=== PATIENT | male | born 1960 | race Caucasian/White ===

== ENCOUNTER 2023-12-19 14:53 | Outpatient (OUT) | payer SELFPAY | END 2023-12-19 14:54 | disposition home or self-care (01) | LOC: PST 14:54 | PROVIDERS: Visit Provider Surgery | DX: Z01.818 Encounter for other preprocedural examination (principal); Z12.11 Encounter for screening for malignant neoplasm of colon ==

== ENCOUNTER 2023-12-24 06:28 | Day surgery (SDC) | payer OTHER, SELFPAY ==
[2023-12-24 06:35] VITALS: BP 135/73; PULSE 71; TEMP 36.4; O2SAT 98; BMI 32.4; BMI 32.6
--- OUTSIDE RECORDS SUMMARY | 2023-12-24 06:35 | XMS_ITS | CCD ---
Author Organization [facility] Inform ion Partnership [facility] Care Team Providers Care Test Carrier Name Role Phone JESSICA TRIPATHI Primary Care Physician UnavailMD Raymundo Steen Attending Provider DO Jessica Tripathi Primary Care Provider ANKUR, DR BENITEZ Consulting Unavailable [facility] [place] BRISCOE Primary Care Unavailable ANKUR, DR BENITEZ Admitting Unavailable ANKUR, DR BENITEZ Attending Unavailable DUNLOW, DR KASSIDY Huerta Consulting Unavailable ANKUR, DR BENITEZ Attending Unavailable ANKUR, DR BENITEZ Consulting Unavailable [facility] [place] Primary Care Unavailable ANKUR, DR BENITEZ Admitting Unavailable MEGHAWADE Figueroa Consulting Unavailable GEMBUS, APRYL Consulting Unavailable Henna Coleman MD Primary Care Provider MARIA DOLORES ABRAMS Attending Unavailable MARIA DOLORES ABRAMS Attending Unavailable HENNA COLEMAN Attending Unavailable MICHAEL SALCEDO Attending Unavailable Raymundo CRABTREE Attending Unavailable Raymundo CRABTREE Attending Unavailable JESSICA TRIPATHI Primary Care Unavailable JESSICA TRIPATHI Primary Care Unavailable Raymundo CRABTREE Attending Unavailable Allergies Allergy Classification Reported Allergen(s) Allergy Type Date of Onset Reaction(s) Facility (6 sources) Seasonal allergy; Translations: [Seasonal] Drug allergy Sneezing (finding) [facility] Medications Current Medications Medication Drug Class(es) Dates Sig (Normalized) Sig (Original) 3 ML semaglutide 1.34 MG/ML Pen Injector [Ozempic] (5 sources) Start: 12-25-2021 Ozempic (1 mg dose) 4 mg/3 mL subcutaneous solution Refills(s) 0 Start Date: 12/25/21 Status: Ordered acetaminophen 325 mg / HYDROcodone bitartrate 7.5 mg oral tablet (1 source) Opioid Agonist Start: 01-18-2022 take 1 tablet by mouth once, then take 1 tablet by mouth every hour Fonda 325 mg-7.5 mg oral tablet 1 tab(s), Oral, Once, 1 tab(s), Refill(s) 0, Take 1 hour prior to procedure. Don't drive or operate machinery while taking., [id number], 186, cm, 12/25/21 14:38:00 EDT, Height/Length Dosing, 126.9, kg, 12/25/21 14:38:00 EDT, Weight D... Start Date: 01/18/22 Status: Ordered allopurinol 300 mg oral tablet (7 sources) Xanthine Oxidase Inhibitor Start: 01-18-2023 take 1 tablet by mouth once daily allopurinol (Zyloprim) 300 MG tablet Indications: Gouty arthropathy TAKE 1 TABLET BY MOUTH EVERY DAY 90 tablet 3 01/18/2023 Active Start: 12-25-2021 allopurinol 30 0 mg Tab Refills(s) 0 Start Date: 12/25/21 Status: Ordered ascorbic acid 500 mg oral capsule (2 sources) Vitamin C Ascorbic Acid (Vitamin C) 500 MG capsule 1 (one) time each day at the same time. 0 Active aspirin 81 mg oral tablet (4 sources) Platelet Aggregation Inhibitor, Nonsteroidal Anti-inflammatory Drug Start: 10-29-2022 aspirin ([place]) 81 MG capsule Take by mouth 0 10/29/2022 Active Start: 10-29-2022 take 1 mg by mouth e very four hours aspirin 81 mg oral capsule mg cap(s), Oral, q4hr, Refills(s) 0 Start Date: 10/29/22 Status: Ordered docosahexaenoic acid 120 mg / eicosapentaenoic acid 180 mg oral capsule (2 sources) omega-3 1000 MG capsule capsule Take by mouth 0 Active doxycycline hyclate 100 mg oral capsule (1 source) Tetracycline-class Drug Start: 2022 End: 2022 take 1 capsule by mouth twice daily doxycycline hyclate 100 mg Cap 100 mg = 1 cap(s), Oral, BID, Take with probiotics. Wear sun protection., X 28 day(s), # 56 cap(s), Refills(s) 0, Pharmacy: [facility] #[id number], 186, cm, 10/29/22 8:41:00 EDT, Height/Length Dosing, 119, kg, 10/29/22 8:41:00 EDT, Weight Dosing Start Date: 10/29/22 Stop Date: 11/26/22 Status: Ordered hydroCHLOROthiazide 25 mg / lisinopril 20 mg oral tablet (7 sources) Thiazide Diuretic, Angiotensin Converting Enzyme Inhibitor Start: 2021 End: 2023 take 1 tablet by mouth in the morning lisinopril-hydroC HLOROthiazide 20-25 MG tablet Indications: Primary hypertension (CMS/HCC) Take 1 tablet by mouth in the morning. 90 tablet 3 11/01/2022 11/01/2023 Active hydroCHLOROthiazide 25 mg / metoprolol tartrate 50 mg oral tablet (5 sources) Thiazide Diuretic, beta-Adrenergic Nuria Start: 2021 take 1 tablet by mouth twice daily hydrochlorothiazi de-metoprolol 25 mg-50 mg oral tablet tab(s), Oral, BID, Refill(s) 0 Start Date: 12/25/21 Status: Ordered levoFLOXacin 500 mg oral tablet (1 source) Quinolone Antimicrobial Start: 2021 take 1 tablet by mouth once daily Levaquin 500 mg Tab 500 mg = 1 tab(s), Oral, Daily, # 7 tab(s), Refills(s) 0, Pharmacy: [facility] #[id number], 186, cm, 12/25/21 14:38:00 EDT, Height/Length Dosing, 126.9, kg, 12/25/21 14:38:00 EDT, Weight Dosing Start Date: 12/25/21 Status: Ordered 24 hr metoprolol succinate 50 mg extended release oral tablet (2 sources) beta-Adrenergic Nuria Start: 2022 End: 2023 take 1 tablet by mouth once daily metoprolol succinate XL (Toprol-XL) 50 MG 24 hr tablet Indications: Primary hypertension (CMS/HCC) Take 1 tablet (50 mg) by mouth 1 (one) time each day at the same time. 90 tablet 3 11/01/2022 11/01/2023 Active Multi Vitamin+ (2 sources) Start: 2022 Multi Vitamin+ Refill(s) 0 Start Date: 10/29/22 Status: Ordered Multiple Vitamin (Multi Vitamin Daily) tablet (2 sources) Multiple Vitamin (Multi Vitamin Daily) tablet 1 (one) time each day at the same time. 0 Active ONE TOUCH VERIO TEST ST(NEW)100S (5 sources) Start: [address] TEST [address](NEW)100S ONE TOUCH VERIO TEST ST(NEW)100S Start Date: 12/25/21 Status: Ordered Ozempic, 1 MG/DOSE, 4 MG/3ML solution pen-injector (2 sources) Start: 2022 End: 2023 inject 1 mg by subcutaneous injection every week Ozempic, 1 MG/DOSE, 4 MG/3ML solution pen-injector Indications: Type 2 diabetes mellitus with diabetic polyneuropathy, without long-term current use of insulin ([facility]) Inject 1 mg under the skin 1 (one) time per week. 9 mL 3 11/01/2022 11/01/2023 Active tamsulosin hydrochloride 0.4 mg oral capsule (7 sources) alpha-Adrenergic Nuria Start: 2022 End: 2023 take 1 capsule by mouth twice daily Flomax 0.4 mg Cap 0.4 mg = 1 cap(s), Oral, BID, X 90 day(s), # 180 cap(s), Refills(s) 3, Pharmacy: [facility] #[id number], 186, cm, 10/29/22 8:41:00 EDT, Height/Length Dosing, 119, kg, 10/29/22 8:41:00 EDT, Weight Dosing Start Date: 10/29/22 Stop Date: 10/24/23 Status: Ordered Start: 01-18-2022 take 1 capsule by [facility] once daily Flomax 0.4 mg Cap 0.4 mg = 1 cap(s), Oral, Daily, # 90 cap(s), Refills(s) 3, Pharmacy: [facility] #[id number], 186, cm, 12/25/21 14:38:00 EDT, Height/Length Dosing, 126.9, kg, 12/25/21 14:38:00 EDT, Weight Dosing Start Date: 01/18/22 Status: Ordered Start: 12-25-2021 take 1 capsule by mo ut once daily tamsulosin 0.4 mg Cap 0.4 mg = 1 cap(s), Oral, Daily, # 30 cap(s), Refills(s) 6, Pharmacy: [facility] #[id number], 186, cm, 12/25/21 14:38:00 EDT, Height/Length Dosing, 126.9, kg, 12/25/21 14:38:00 EDT, Weight Dosing Start Date: 12/25/21 Status: Ordered take 1 capsule by [facility] every twenty-four hours in the morning tamsulosin (Flomax) 0.4 MG 24 hr capsule Take 0.4 mg by mouth in the morning and 0.4 mg before bedtime. 0 Active Turmeric extract (2 sources) TURMERIC PO Take by mouth 0 Active Completed/Discontinued Medications Medication Drug Class(es) Dates Sig (Normalized) Sig (Original) omeprazole 20 mg delayed release oral tablet (6 sources) Proton Pump Inhibitor Start: 11-01-2022 End: 11-01-2023 Omeprazole 20 MG tablet delayed-release Start: 10-29-2022 omeprazole Ora l, Daily, Refills(s) 0 Start Date: 10/29/22 Status: Ordered Problems Active Problems Problem Classification Problem Date Documented Da te Episodic/Chronic Acquired foot deformities (4 sources) Acquired hallux malleus; Translations: [Hallux varus (acquired), unspecified foot] Onset: 11-19-2017 11-01-2022 Chronic Asthma (6 sources) Asthma; Translations: [Unspecified asthma, uncomplicated] Onset: 02-21-2022 12-25-2021 Chronic Cancer of prostate (7 sources) Malignant neoplasm of prostate; Translations: [Malignant tumor of prostate] Onset: 02-21-2022 Chronic Diabetes mellitus with complications (8 sources) Type 2 diabetes mellitus; Translations: [Type 2 diabetes mellitus with diabetic polyneuropathy] Onset: 02-21-2016 Resolved: 12-06-2022 06-18-2023 Chronic Diabetes mellitus without complication (6 sources) Diabetes mellitus; Translations: [Type 2 diabetes mellitus without complications] Onset: 02-21-2022 2 Chronic Disorders of lipid metabolism (2 sources) Hypertriglyceridemi a; Translations: [Pure hyperglyceridemia] Onset: 05-03-2017 11-01-2022 Chronic Essential hypertension (8 sources) Hypertensive disorder; Translations: [Essential (primary) hypertension] Onset: 07-03-2016 12-25-2021 Chronic Genitourinary symptoms and ill-defined conditions (3 sources) Nocturia; Translations: [Darci hematuria] Onset: 02-21-2022 10-29-2022 Episodic Gout and other crystal arthropathies (8 sources) Gout; Translations: [Gout, unspecified] Onset: 07-09-2016 12-25-2021 Chronic Hyperplasia of prostate (12 sources) Benign prostatic hypertrophy without outflow obstruction; Translations: [Benign prostatic hyperplasia without lower urinary tract symptoms] Onset: 07-09-2016 Chronic Hypertension with complications and secondary hypertension (2 sources) Chronic kidney disease due to hypertension; Translations: [Hypertensive chronic kidney disease with stage 1 through stage 4 chronic kidney disease, or unspecified chronic kidney disease] Onset: 07-09-2016 11-01-2022 Chronic Inflammatory conditions of male genital organs (4 sources) Prostatitis; Translations: [Inflammatory disease of prostate, unspecified] Onset: 10-29-2022 Episodic Osteoarthritis (8 sources) Arthritis; Translations: [Unspecified osteoarthritis, unspecified site] Onset: 02-16-2017 12-25-2021 Chronic Other connective tissue disease (2 sources) Artificial knee joint present; Translations: [Presence of unspecified artificial knee joint] Onset: 02-21-2016 11-01-2022 Chronic Other male genital disorders (2 sources) Hemospermia 10-29-2022 Episodic Other nervous system disorders (2 sources) Difficulty walking up stairs; Translations: [Difficulty in walking, not elsewhere classified] Onset: 02-16-2017 11-01-2022 Chronic Other nervous system disorders (2 sources) Chronic pain; Translations: [Other chronic pain] Onset: 02-05-2017 11-01-2022 Chronic Other nutritional; endocrine; and metabolic disorders (4 sources) Severe obesity; Translations: [Morbid (severe) obesity due to excess calories] Onset: 10-25-2020 06-20-2023 Chronic Other nutritional; endocrine; and metabolic disorders (2 sources) Obese class II; Translations: [Obesity, unspecified] Onset: 02-23-2019 11-01-2022 Chronic Residual codes; unclassified (2 sources) Dependence on continuous positive airway pressure ventilation; Translations: [Dependence on other enabling machines and devices] Onset: 11-01-2022 11-01-2022 Chronic Residual codes; unclassified (2 sources) Obstructive sleep apnea syndrome; Translations: [Obstructive sleep apnea (adult) (pediatric)] Onset: 07-09-2016 11-01-2022 Chronic Unclassified (1 source) CONTACT W/AND (SUSP) EXPOS COVID-19; Translations: [CONTACT W/AND (SUSP) EXPOS COVID-19] Onset: 02-15-2022 Past or Other Problems Problem Classification Problem Date Documented Da te Episodic/Chronic Acquired foot deformities (4 sources) Acquired pes planus of left foot; Translations: [Flat foot [pes planus] (acquired), left foot] Onset: 07-09-2016 11-01-2022 Episodic Acquired foot deformities (2 sources) Acquired pes planus of right foot; Translations: [Flat foot [pes planus] (acquired), right foot] Onset: 07-09-2016 11-01-2022 Episodic Other aftercare (1 source) Other custodial (current) drug therapy; Translations: [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] Onset: 02-21-2022 Episodic Other and unspecified benign neoplasm (2 sources) History of adenomatous polyp of colon; Translations: [Personal history of colonic polyps] Onset: 06-29-2016 11-01-2022 Episodic Other injuries and conditions due to external causes (2 sources) History of fall; Translations: [History of falling] Onset: 11-19-2016 11-01-2022 Episodic Other male genital disorders (1 source) Disorder of prostate, unspecified; Translations: [DISORDER OF PROSTATE UNSPECIFIED] Onset: 02-21-2022 Episodic Other nutritional; endocrine; and metabolic disorders (2 sources) Hyperuricemia; Translations: [Hyperuricemia without signs of inflammatory arthritis and tophaceous disease] Onset: 07-09-2016 11-01-2022 Episodic Other screening for suspected conditions (not mental disorders or infectious disease) (7 sources) Raised prostate specific antigen; Translations: [Elevated prostate specific antigen [PSA]] Onset: 05-03-2017 Episodic Residual codes; unclassified (2 sources) Family history of ischemic heart disease; Translations: [Family history of ischemic heart disease and other diseases of the circulatory system] Onset: 07-09-2016 11-01-2022 Episodic Results Test Name Value Interpretation Reference Range Facility [facility] 07-05-2023 Lab Reports [id number] Normal [facility] 06-25-2023 Lab Reports [id number] 0TIFF Normal [facility] Ambulatory Visit Summaryon 0 06-24-2023 Ambulatory Visit Summary MINDI GEORGE Claudy :1960 Visit Date:06/24/2023 Ambulatory Visit Instructions Your Diagnosis Prostate cancer BPH with urinary obstruction Your Care Team Attending Physician - ANKUR ELLIOTT, Raymundo Conte Primary Care Physician - JARED ELLIOTT, HENNA Castanon This Is Your Medications List tamsulosin (Flomax 0.4 mg Cap) Contact prescribing physician if questions or concerns Misc Prescription (ONE TOUCH VERIO TEST ST(NEW)100S) Misc Prescription (ONETOUCH DELICA PLUS LANCET ONETOUCH DELICA PLUS 33G LANCT) allopurinol (allopurinol 300 mg Tab) aspirin (aspirin 81 mg oral capsule) hydrochlorothiazide-li sinopril (hydrochlorothiazide-l isinopril 25 mg-20 mg Tab) hydrochlorothiazide-me toprolol (hydrochlorothiazide-m etoprolol 25 mg-50 mg oral tablet) multivitamin (Multi Vitamin+) omeprazole semaglutide (Ozempic (1 mg dose) 4 mg/3 mL subcutaneous solution) Procedures Performed MRI-US fusion guided prostate biopsy (02/15/2022), Colonoscopy, Knee replacement. Discharge Vitals Height 186 cm Height 73 in Weight 119 kg Weight 261.8 lb BMI 34.4 What to do next Scheduled Follow-Up Appointments Saturday 3:15 PM EDT With: ANKUR ELLIOTT, Raymundo Conte Where: [facility] Patient Educationon 06-24-19 24 Patient Education Oncology Prostate Cancer Screening Prostate cancer screening is testing that is done to check for the presence of prostate cancer in men. The prostate gland is a walnut-sized gland that is located below the bladder and in front of the rectum in males. The function of the prostate is to add fluid to semen during ejaculation. Prostate cancer is one of the most common types of cancer in men. Who should have prostate cancer screening? Screening recommendations vary based on age and other risk factors, as well as between the professional organizations who make the recommendations. In general, screening is recommended if: ? You are age 50 to 70 and have an average risk for prostate cancer. You should talk with your health care provider about your need for screening and how often screening should be done. Because most prostate cancers are slow growing and will not cause , screening in this age group is generally reserved for men who have a 10- to 15-year life expectancy. ? You are younger than age 50, and you have these risk factors: ? Having a father, brother, or uncle who has been diagnosed with prostate cancer. The risk is higher if your family member's cancer occurred at an early age or if you have multiple family members with prostate cancer at an early age. ? Being a male who is Black or is of [place] or sub-Saharan descent. In general, screening is not recommended if: ? You are younger than age 40. ? You are between the ages of 40 and 49 and you have no risk factors. ? You are 70 years of age or older. At this age, the risks that screening can cause are greater than the benefits that it may provide. If you are at high risk for prostate cancer, your health care provider may recommend that you have screenings more often or that you start screening at a younger age. How is screening for prostate cancer done? The recommended prostate cancer screening test is a blood test called the prostate-specific antigen (PSA) test. PSA is a protein that is made in the prostate. As you age, your prostate naturally produces more PSA. Abnormally high PSA levels may be caused by: ? Prostate cancer. ? An enlarged prostate that is not caused by cancer (benign prostatic hyperplasia, or BPH). This condition is very common in older men. ? A prostate gland infection (prostatitis) or urinary tract infection. ? Certain medicines such as male hormones (like testosterone) or other medicines that raise testosterone levels. A rectal exam may be done as part of prostate cancer screening to help provide information about the size of your prostate gland. When a rectal exam is performed, it should be done after the PSA level is drawn to avoid any effect on the results. Depending on the PSA results, you may need more tests, such as: ? A physical exam to check the size of your prostate gland, if not done as part of screening. ? Blood and imaging tests. ? A procedure to remove tissue samples from your prostate gland for testing (biopsy). This is the only way to know for certain if you have prostate cancer. What are the benefits of prostate cancer screening? ? Screening can help to identify cancer at an early stage, before symptoms start and when the cancer can be treated more easily. ? There is a small chance that screening may lower your risk of dying from prostate cancer. The chance is small because prostate cancer is a slow-growing cancer, and most men with prostate cancer from a different cause. What are the risks of prostate cancer screening? The main risk of prostate cancer screening is diagnosing and treating prostate cancer that would never have caused any symptoms or problems. This is called overdiagnosisand overtreatment. PSA screening cannot tell you if your PSA is high due to cancer or a different cause. A prostate biopsy is the only procedure to diagnose prostate cancer. Even the results of a biopsy may not tell you if your cancer needs to be treated. Slow-growing prostate cancer may not need any treatment other than monitoring, so diagnosing and treating it may cause unnecessary stress or other side effects. Questions to ask your health care provider ? When should I start prostate cancer screening? ? What is my risk for prostate cancer? ? How often do I need screening? ? What type of screening tests do I need? ? How do I get my test results? ? What do my results mean? ? Do I need treatment? Where to find more information ? The [place] [employer]: www.cancer.org ? [place] [employer]: www.auanet.org Contact a health care provider if: ? You have difficulty urinating. ? You have pain when you urinate or ejaculate. ? You have blood in your urine or semen. ? You have pain in your back or in the area of your prostate. Summary ? Prostate cancer is a common type of cancer in men. The prostate gland is located below the bladder and in front of the rectum. This gland adds flu (more content not included)... Normal [facility] Urology Office/Clinic Noteon 06-24-2023 Urology Office/Clinic Note Chief Complaint 6m PSA & SHELBY HPI Staff 6 month f/u with PSA. Previous dx of prostate cancer (ACTIVE SURVEILLANCE), BPH and prostatitis. Flomax 0.4mg BID. Denies pain/burning and visible blood in urine. Frequency and improved. Day & Night. Only getting up 1x/night (was 3-4) Steady stream. Intermittent lower abdominal pain for over the past year. Denies current pain. Usually lasts a few seconds/minutes, fades away after urinating &/or BM. PSA 06/21/23- 7.93 History of Present Illness Tests reviewed: reviewed UA, PSA I have reviewed the previous health record information and history for this patient from Dr. Crabtree. I have reviewed and verified the staff HPI to be accurate for this encounter. Review of Systems PHQ Score Initial Depression Screen Score: 0 SCORE ROS - Provider Constitutional: denies weight loss, denies hot flashes. Eyes: denies eye problems. Gastrointestinal: denies nausea, denies vomiting. Cardiovascular: denies chest pain or angina. Integumentary: no dryness Musculoskeletal: denies musculoskeletal symptoms. ENMT: denies otolaryngeal symptoms. Respiratory: no shortness of breath. Heme/Lymph: denies easy bleeding tendency, denies easy bruising tendency. Psychiatric: no confusion, no anxiety. Genitourinary: See HPI. Physical Exam Vitals & Measurements HT: 73 in HT: 186 cm WT: 119 kg WT: 261.8 lb BMI: 34.4 General Appearance: alert, no distress, well nourished, well developed male. Genitourinary: normal scrotum, normal testes, normal urethra, normal epididymis, normal vas deferens/spermatic cord. Flank Pain: none. Bladder: nonpalpable. Prostate: normal prostate, estimated weight 45 gms, no hard nodule observed. Assessment/Plan 1. Prostate cancer (C61: Malignant neoplasm of prostate) ACTIVE SURVEILLANCE. PSA: 11/01/21 - 6.86 10/24/22 - 6.61 06/21/23 - 7.93 SHELBY: 45g, benign MRI of prostate 01/09/22 - PI-RADS 4. Lateral aspect of the R peripheral zone at the level of the apex measuring 5 x 5 mm. Fusion bx 02/15/22 - [place] 6 (3+3) x 1 core, less than 1% of the core. Discussed PSA level w/ pt. Has increased from prior. Advised pt we will need to repeat PSA level in 6 months to determine next step. Educated pt there is more concern if PSA continues to rise vs fluctuate. Pt is concerned about current level. Offered PSA in 3 months and in 6 months. Pt states he is fine with PSA check in 6 months. -F/u in 6 mos w/ PSA 2. BPH with urinary obstruction (N40.1: Benign prostatic hyperplasia with lower urinary tract symptoms) Taking Tamsulosin 0.4mg bid. UA today negative for blood and infection. Follow-up With When Contact Information ANKUR ELLIOTT, Raymundo Conte, URL [facility] [address], [place] [address] [phone] Additional Instructions: 6 mos w/ PSA Patient Education Prostate Cancer Screening I, Barb Durán, personally scribed for Dr. Crabtree on 06/24/2023 16:21:22. . Documentation recorded by the scribe, Barb Durán, accurately reflects the services(s) I performed and decisions made by me. Authenticated by Dr. Crabtree on 06/24/2023 16:23:18. Problem List/Past Medical History Ongoing Arthritis Asthma BPH (benign prostatic hyperplasia) BPH with urinary obstruction Diabetes Gout Gross hematuria Hematospermia Hypertension Prostate cancer Prostatitis Historical No qualifying data Procedure/Surgical History MRI-US fusion guided prostate biopsy (02/15/2022), Colonoscopy, Knee replacement. Medications allopurinol 300 mg Tab aspirin 81 mg oral capsule, Oral, q4hr Flomax 0.4 mg Cap, 0.4 mg= 1 cap(s), Oral, BID, 3 refills hydrochlorothiazide-li sinopril 25 mg-20 mg Tab hydrochlorothiazide-me toprolol 25 mg-50 mg oral tablet, Oral, BID Multi Vitamin+ omeprazole, Oral, Daily ONE TOUCH VERIO TEST ST(NEW)100S, 0 ONETOUCH DELICA PLUS LANCET ONETOUCH DELICA PLUS 33G LANCT, 0 Ozempic (1 mg dose) 4 mg/3 mL subcutaneous solution Allergies Seasonal (Sneezing) Social History Tobacco Never (less than 100 in lifetime) Tobacco Use:. Never Smokeless Tobacco Use:. Household tobacco concerns: No. Yes, 06/24/2023 Family History Heart disease: Father. Immunizations Vaccine Date Status Comments influenza virus vaccine, inactivated 04/30/2022 Recorded pneumococcal 23-valent vaccine 10/31/2021 Recorded SARS-CoV-2 (COVID-19) mRNA-1273 vaccine 05/09/2021 Recorded influenza virus vaccine, inactivated 04/27/2021 Recorded diphtheria/pertussis, acel/tetanus adult 01/25/2021 Recorded SARS-CoV-2 (COVID-19) mRNA-1273 vaccine 08/26/2020 Recorded 2022-02-21: TPV60 SARS-CoV-2 (COVID-19) mRNA-1273 vaccine 07/29/2020 Recorded 2022-02-21: TPV60 influenza, whole 03/14/2009 Recorded Lab Results Ambulatory Point of Care Results Bilirubin Urine Dipstick: Negative (06/24/23 15:34:00) Blood Urine Dipstick: Negative (06/24/23 15:34:00) Glucose Urine Dipstick: Negative (06/24/23 15: (more content not included)... Normal [facility] Comment on above: Result Comment: Elec tronically Signed By: Raymundo CRABTREE MD\.br\Date and Time Signed: 06/24/23 16:23 EST\.br\Electronically Co-Signed By: Barb Durán\.br\Date and Time Co-Signed: 06/24/23 16:22 EST HbA1c (Bld) [Mass fraction]o n 06-20-2023 Interpretation and review of laboratory results Normal [facility] - Hematology and Cell countson 06-20-2023 HbA1c (Bld) [Mass fraction] 5.3 % [facility] Patient Educationon 01-01-20 Patient Education Urology Benign Prostatic Hyperplasia Benign prostatic hyperplasia (BPH) is an enlarged prostate gland that is caused by the normal aging process. The prostate may get bigger as a man gets older. The condition is not caused by cancer. The prostate is a walnut-sized gland that is involved in the production of semen. It is located in front of the rectum and below the bladder. The bladder stores urine. The urethra carries stored urine out of the body. An enlarged prostate can press on the urethra. This can make it harder to pass urine. The buildup of urine in the bladder can cause infection. Back pressure and infection may progress to bladder damage and kidney (renal) failure. What are the causes? This condition is part of the normal aging process. However, not all men develop problems from this condition. If the prostate enlarges away from the urethra, urine flow will not be blocked. If it enlarges toward the urethra and compresses it, there will be problems passing urine. What increases the risk? This condition is more likely to develop in men older than 50 years. What are the signs or symptoms? Symptoms of this condition include: ? Getting up often during the night to urinate. ? Needing to urinate frequently during the day. ? Difficulty starting urine flow. ? Decrease in size and strength of your urine stream. ? Leaking (dribbling) after urinating. ? Inability to pass urine. This needs immediate treatment. ? Inability to completely empty your bladder. ? Pain when you pass urine. This is more common if there is also an infection. ? Urinary tract infection (UTI). How is this diagnosed? This condition is diagnosed based on your medical history, a physical exam, and your symptoms. Tests will also be done, such as: ? A post-void bladder scan. This measures any amount of urine that may remain in your bladder after you finish urinating. ? A digital rectal exam. In a rectal exam, your health care provider checks your prostate by putting a lubricated, gloved finger into your rectum to feel the back of your prostate gland. This exam detects the size of your gland and any abnormal lumps or growths. ? An exam of your urine (urinalysis). ? A prostate specific antigen (PSA) screening. This is a blood test used to screen for prostate cancer. ? An ultrasound. This test uses sound waves to electronically produce a picture of your prostate gland. Your health care provider may refer you to a specialist in kidney and prostate diseases (urologist). How is this treated? Once symptoms begin, your health care provider will monitor your condition (active surveillance or watchful waiting). Treatment for this condition will depend on the severity of your condition. Treatment may include: ? Observation and yearly exams. This may be the only treatment needed if your condition and symptoms are mild. ? Medicines to relieve your symptoms, including: ? Medicines to shrink the prostate. ? Medicines to relax the muscle of the prostate. ? Surgery in severe cases. Surgery may include: ? Prostatectomy. In this procedure, the prostate tissue is removed completely through an open incision or with a laparoscope or robotics. ? Transurethral resection of the prostate (TURP). In this procedure, a tool is inserted through the opening at the tip of the penis (urethra). It is used to cut away tissue of the inner core of the prostate. The pieces are removed through the same opening of the penis. This removes the blockage. ? Transurethral incision (TUIP). In this procedure, small cuts are made in the prostate. This lessens the prostate's pressure on the urethra. ? Transurethral microwave thermotherapy (TUMT). This procedure uses microwaves to create heat. The heat destroys and removes a small amount of prostate tissue. ? Transurethral needle ablation (TUNA). This procedure uses radio frequencies to destroy and remove a small amount of prostate tissue. ? Interstitial laser coagulation (ILC). This procedure uses a laser to destroy and remove a small amount of prostate tissue. ? Transurethral electrovaporization (TUVP). This procedure uses electrodes to destroy and remove a small amount of prostate tissue. ? Prostatic urethral lift. This procedure inserts an implant to push the lobes of the prostate away from the urethra. Follow these instructions at home: ? Take ujic-zac-ghwadhf and prescription medicines only as told by your health care provider. ? Monitor your symptoms for any changes. Contact your health care provider with any changes. ? Avoid drinking large amounts of liquid before going to bed or out in public. ? Avoid or reduce how much caffeine or alcohol you drink. ? Give yourself time when you urinate. ? Keep all follow-up visits. This is important. Contact a health care provider if: ? You have unexplained back pain. ? Your symptoms do not get better with treatment. ? You develop side effects from the medicine (more content not included)... Normal [facility] Reminderson 12-31-2022 Reminders - From: Barb Durán To: SPENCER Rachel Rcabtree; Sent: 12/31/2022 17:05:43 EDT Show up: 06/02/2023 16:05:00 EST Subject: PSA prior to appt Reminder Message Please Remember to:_have pt get PSA (@ [facility]) done prior to appt. [facility] Urology Office/Clinic Noteon 12-31-2022 Urology Office/Clinic Note Chief Complaint 2 month follow up HPI Staff 2 month follow up after starting Doxycycline 100mg q12hr x 4 weeks. Previous DX: prostate cancer (MRI fusion bx 02/15/22) and BPH with elevated PSA. *Tamsulosin 0.4mg BID therapy was increased from last visit. Dysuria: denies pain or burning Incomplete bladder emptying: denies Hematuria: denies visible blood Frequency: 12-14x a day, drinks a lot of coffee Urgency: yes Nocturia: 1x a night Stream: denies hesitancy, denies weak stream Leaking: denies Post void dripping: yes Wearing pads/ Depends: denies Urge incontinence: sometimes not consistently Stress incontinence: denies Incontinence without Sensory Awareness: denies Abdominal pain: denies Flank pain: denies Sexual complaints: denies History of Present Illness Tests reviewed: reviewed UA I have reviewed the previous health record information and history for this patient from Dr. Crabtree. I have reviewed and verified the staff HPI to be accurate for this encounter. There have been no associated fever, chills, flank pain, or blood in the urine. Denies any urinary infections since last encounter. Review of Systems PHQ Score Initial Depression Screen Score: 0 ROS - Provider Constitutional: denies weight loss, denies hot flashes. Eyes: denies eye problems. Gastrointestinal: denies nausea, denies vomiting. Cardiovascular: denies chest pain or angina. Integumentary: no dryness Musculoskeletal: denies musculoskeletal symptoms. ENMT: denies otolaryngeal symptoms. Respiratory: no shortness of breath. Heme/Lymph: denies easy bleeding tendency, denies easy bruising tendency. Psychiatric: no confusion, no anxiety. Genitourinary: See HPI. Physical Exam Vitals & Measurements HR: 63(Peripheral) BP: 134/82 HT: 73 in HT: 186 cm WT: 119 kg WT: 261.8 lb BMI: 34.4 General Appearance: alert, no distress, well nourished, well developed male. Genitourinary: normal scrotum, normal testes, normal urethra, normal epididymis, normal vas deferens/spermatic cord. Flank Pain: none. Bladder: nonpalpable. Assessment/Plan 1. Prostate cancer (C61: Malignant neoplasm of prostate) ACTIVE SURVEILLANCE. PSA: 11/01/21 - 6.86 10/24/22 - 6.61 MRI of prostate 01/09/22 - PI-RADS 4. Lateral aspect of the R peripheral zone at the level of the apex measuring 5 x 5 mm. Fusion bx 02/15/22 - Julius 6 (3+3) x 1 core, less than 1% of the core. [1] Follow up with PSA and SHELBY in 6 months or sooner if needed. Pt understands and agrees with plan. 2. BPH (benign prostatic hyperplasia) (N40.0: Benign prostatic hyperplasia without lower urinary tract symptoms) Pt continues taking Tamsulosin 0.4 mg BID. Reports he voids every 0.5-1.5hr. States he feels he would have an accident if he did not go right away. Has a moderately strong and occasional stop/start stream. Feels he empties completely. Admits he drinks about 32oz of decaffeinated coffee per day during the week (and caffeinated on the weekends). Advised to decrease coffee intake to help with frequency. 3. Prostatitis (N41.9: Inflammatory disease of prostate, unspecified) Pt took Doxycycline 100 mg q12hr x 4 weeks at prior office visit. UA today negative for blood and infection. Follow-up With When Contact Information ANKUR ELLIOTT, Raymundo Conte, CHRIS In 6 months [facility] [address] [place] [address]- [phone] Additional Instructions: PSA and SHEL[facility] Patient Education Benign Prostatic Hyperplasia I, Barb Durán, personally scribed for Dr. Crabtree on 12/31/2022 16:48:44. . Documentation recorded by the Barb rodriguez, accurately reflects the services(s) I performed and decisions made by me. Authenticated by Dr. Crabtree on 12/31/2022 16:51:17. Problem List/Past Medical History Ongoing Arthritis Asthma BPH (benign prostatic hyperplasia) Diabetes Gout Gross hematuria Hematospermia Hypertension Prostate cancer Prostatitis Historical No qualifying data Procedure/Surgical History MRI-US fusion guided prostate biopsy (02/15/2022), Colonoscopy, Knee replacement. Medications allopurinol 300 mg Tab aspirin 81 mg oral capsule, Oral, q4hr Flomax 0.4 mg Cap, 0.4 mg= 1 cap(s), Oral, BID, 3 refills hydrochlorothiazide-li sinopril 25 mg-20 mg Tab hydrochlorothiazide-me toprolol 25 mg-50 mg oral tablet, Oral, BID Multi Vitamin+ omeprazole, Oral, Daily ONE TOUCH VERIO TEST ST(NEW)100S, 0 ONETOUCH DELICA PLUS LANCET ONETOUCH DELICA PLUS 33G LANCT, 0 Ozempic (1 mg dose) 4 mg/3 mL subcutaneous solution Allergies Seasonal (Sneezing) Social History Tobacco Never (less than 100 in lifetime) Tobacco Use:. Never Smokeless Tobacco Use:. Household tobacco concerns: No., 12/31/2022 Family History Heart disease: Father. Immunizations Vaccine Date Status Comments influenza virus vaccine, inactivated 04/30/2022 Recorded pneumococcal 23-valent vaccine 10/31/2021 Record (more content not included)... Normal [facility] Comment on above: Result Comment: Elec tronically Signed By: Raymundo CRABTREE MD\.br\Date and Time Signed: 12/31/22 16:51 EDT\.br\Electronically Co-Signed By: Barb Durán\.br\Date and Time Co-Signed: 12/31/22 16:49 EDT No Panel Informationon 02-15 Normal -[facility]Sarthak cormier Work Phone: CBC AUTO DIFFon 02-13-2022 BASO # 0.0 103/ul Normal 0.0-0.1 [facility] Comment on above: Performed By: #### C BC #### Laboratory [address] [place] [address] Dr. Marcell Albarado Basophils/100 WBC (Bld) 0.7 % Normal 0.2-2.0 [facility] Comment on above: Performed By: #### C BC #### Laboratory [address] [place] [address] [id number] [address] Marcell Albarado EO # 0.2 103/ul Normal 0.0-0.7 [facility] Comment on above: Performed By: #### C BC #### Laboratory [address] [place] [address] Dr. Marcell Albarado Eosinophils/100 WBC (Bld) 4.0 % Normal 0.9-7.0 [facility] Comment on above: Performed By: #### C BC #### Laboratory [address] [place] [address] Dr. Marcell Albarado Erythrocyte distribution width (RBC) [Ratio] 14.3 % Normal 11.0-15.0 [facility] Comment on above: Performed By: #### C BC #### Laboratory [address] [place] [address] Dr. Marcell Albarado Hematocrit (Bld) [Volume fraction] 45.2 % Normal 42.0-54.0 [facility] Comment on above: Performed By: #### C BC #### Laboratory [address] [place] [address] Dr. Marcell Albarado Hemoglobin (Bld) [Mass/Vol] 14.9 g/dL Normal 14.0-18.0 [facility] Comment on above: Performed By: #### C BC #### Laboratory [address] [place] [address] Dr. Marcell Albarado IG # 0.02 10e3/ul Normal 0.00-0.03 The Comment on above: Performed By: #### C BC #### Laboratory [address] [place] [address] Dr. Marcell Albarado IG % 0.3 % Normal 0.0-0.5 The Comment on above: Performed By: #### C BC #### Laboratory [address] [place] [address] Dr. Marcell Albarado LYMPH # 1.2 103/ul Normal 1.2-3.8 The Comment on above: Performed By: #### C BC #### Laboratory [address] [place] [address] Dr. Marcell Albarado Lymphocytes/100 WBC (Bld) 20.6 % Normal 20.5-60.0 [facility] Comment on above: Performed By: #### C BC #### Laboratory [address] [place] [address] Dr. Marcell Albarado MANUAL DIFF REQ NO Normal [facility] Comment on above: Performed By: #### C BC #### Laboratory [address] [place] [address] Dr. Marcell Albarado MCH (RBC) [Entitic mass] 28.4 pg Normal 25.9-34.0 [facility] Comment on above: Performed By: #### C BC #### Laboratory [address] [place] [address] Dr. Marcell Albarado MCHC (RBC) [Mass/Vol] 33.0 g/dL Normal 29.9-35.2 [facility] Comment on above: Performed By: #### C BC #### Laboratory [address] [place] [address] Dr. Marcell Albarado MCV (RBC) [Entitic vol] 86.1 fL Normal 80.0-94.0 [facility] Comment on above: Performed By: #### C BC #### Laboratory [address] [place] [address] Dr. Marcell Albarado MONO # 0.4 103/ul Normal 0.3-0.8 [facility] Comment on above: Performed By: #### C BC #### Laboratory [address] [place] [address] Dr. Marcell Albarado Monocytes/100 WBC (Bld) 7.5 % Normal 1.7-12.0 [facility] Comment on above: Performed By: #### C BC #### Laboratory [address] [place] [address] Dr. Marcell Albarado NEUT # 3.8 103/ul Normal 1.4-6.5 The Comment on above: Performed By: #### C BC #### Laboratory [address] [place] [address] Dr. Marcell Albarado Neutrophils/100 WBC (Bld) 66.9 % Normal 43.0-75.0 The Comment on above: Performed By: #### C BC #### Laboratory [address] [address] [address] Marcell Albarado Platelet mean volume (Bld) [Entitic vol] 9.8 fL Normal 9.5-13.5 [facility] Comment on above: Performed By: #### C BC #### Laboratory [address] [address] [address] Marcell Albarado PLT 234 103/ul Normal 150-450 The Comment on above: Performed By: #### C BC #### Laboratory [address] [address] [address] Marcell Albarado RBC 5.25 106/ul Normal 4.70-6.10 The Comment on above: Performed By: #### C BC #### Laboratory [address] [place] [address] Dr. Marcell Albarado WBC 5.7 103/ul Normal 4.0-11.0 [facility] Comment on above: Performed By: #### C BC #### Laboratory [address] [address] [address] Marcell Albarado Covid-19 PCR ([facility])on 01-19 SARS-CoV-2 (COVID-19) RNA ZOLTAN+probe Ql (Unsp spec) Not detected Normal NOT DETECTED The Comment on above: Result Comment: This test is not yet approved or cleared by the [place] FDA. When there are no FDA-approved or cleared tests available, and other criteria are met, FDA can make tests available under an emergency access mechanism called an Emergency Use Authorization (EUA). The EUA for this test is supported by the [place] of Health and Human Service's (HHS's) declaration that circumstances exist to justify the emergency use of in vitro diagnostics for the detection and/or diagnosis of the virus that causes COVID-19. This EUA will remain in effect (meaning this test can be used) for the duration of the COVID-19 declaration justifying emergency of IVDs, unless it is terminated or revoked by FDA (after which the test may no longer be used). When diagnostic testing is negative, the possibility of a false negative should be considered in the context of a patient's recent exposures and the presence of clinical signs and symptoms consistent with SARS-CoV-2. Performed By: #### C VDTB #### Laboratory [address] [place] [address] Dr. Marcell Albarado PROF CHEM 8 (BAS METB)on Anion gap [Moles/Vol] 14.5 mmol/L Normal [facility] Comment on above: Performed By: #### B MP #### Laboratory [address] [place] [address] Dr. Marcell Albarado Calcium [Mass/Vol] 9.1 mg/dL Normal 8.5-10.1 [facility] Comment on above: Performed By: #### B MP #### Laboratory [address] [place] [address] Dr. Marcell Albarado Chloride [Moles/Vol] 104 mmol/L Normal 98-107 [facility] Comment on above: Performed By: #### B MP #### Laboratory [address] [place] [address] Dr. Marcell Albarado CO2 [Moles/Vol] 24.3 mmol/L Normal 21.0-32.0 [facility] Comment on above: Performed By: #### B MP #### Laboratory [address] [place] [address] Dr. Marcell Albarado Creatinine [Mass/Vol] 1.13 mg/dL Normal 0.70-1.30 [facility] Comment on above: Performed By: #### B MP #### Laboratory [address] [place] [address] Dr. Marcell Albarado EGFR-AF CHINESE >60 Normal >=60 [facility] Comment on above: Performed By: #### B MP #### Laboratory [address] [place] [address] Dr. Marcell Albarado EGFR-NON AF CHINESE >60 Normal >=60 [facility] Comment on above: Performed By: #### B MP #### Laboratory [address] [place] [address] Dr. Marcell Albarado Glucose [Mass/Vol] 102 mg/dL Normal 74-106 [facility] Comment on above: Performed By: #### B MP #### Laboratory [address] [address] [address] Marcell Albarado Potassium [Moles/Vol] 3.8 mmol/L Normal 3.5-5.1 [facility] Comment on above: Performed By: #### B MP #### Laboratory [address] [address] [address] Marcell Albarado Sodium [Moles/Vol] 139 mmol/L Normal 136-145 [facility] Comment on above: Performed By: #### B MP #### Laboratory [address] [place] [address] Dr. Marcell Albarado Urea nitrogen [Mass/Vol] 23.0 mg/dL Critically high 7.0-18.0 [facility] Comment on above: Performed By: #### B MP #### Laboratory [address] [address] [address] Marcell Albarado Urea nitrogen/Creatinine [Mass ratio] 20.4 mg/mg Normal The Comment on above: Performed By: #### B MP #### Laboratory [address] [place] [address] Dr. Marcell Albarado PROTIMEon 02-13-2022 INR Coag (PPP) [Relative time] 1.02 {INR} Normal [facility] Comment on above: Performed By: #### P T, PTT #### Laboratory [address] [place] [address] Dr. Marcell Albarado INR GUIDELINES SEE BELOW Normal [facility] Comment on above: Result Comment: DAWN RED INR: 2.0 - 3.0 CONDITIONS NOT LISTED BELOW 2.5 - 3.5 FOR PROSTHETIC HEART VALVE REPLACEMENT 2.5 - 3.5 RECURRENT THROMBOSIS Performed By: #### P T, PTT #### Laboratory [address] [place] [address] Dr. Marcell Albarado PT Coag (PPP) [Time] 11.0 s Normal 9.0-11.6 [facility] Comment on above: Performed By: #### P T, PTT #### Laboratory [address] [place], [place] [address] Dr. Marcell Albarado PTTon 02-13-2022 aPTT Coag (Bld) [Time] 28.2 s Normal 22.3-36.2 Th [facility] Comment on above: Performed By: #### P T, PTT #### Laboratory [address] [address] [address] Marcell Albarado ISTAT XRay CREon 01-10-2022 Creatinine [Mass/Vol] 1.2 mg/dL Normal 0.6-1.3 [facility] Comment on above: Result Comment: ER/E SD physician is notified/shown all ISTAT results. Critical values may be confirmed by laboratory testing if deemed necessary by ER attending doctor. Performed By: #### I SCRE #### [facility] [address] [place] [address] Point of Care testing , ISTAT GFR ( > 60 [facility] Comment on above: Result Comment: GFR estimated reference range: According to KDOQI guidelines, <60 ml/min/1.73m2 is sufficient to diagnose a patient with chronic kidney disease. PERFORMED BY: [place] [address] PATHOLOGIST [employer] GRINDER TRENTON BUTLER M.D. Performed By: #### I SCRE #### [facility] [address] [place] [address] Point of Care testing , ISTAT GFR (Non- Am > 60 [facility] Comment on above: Performed By: #### I SCRE #### [facility] [address] [place] [address] Point of Care testing , MR prostate wo/w conon 01-10 MR prostate wo/w con [facility] [place] [address] MRI Report Signed Patient: Mindi Geogre MR#: [id number] : 1960 Acct:[id number] Age/Sex: 61 / M ADM Date: 08/23/22 Loc: MR Room: Type: [facility] Attending Dr: Raymundo Crabtree MD Copies to: Raymundo Crabtree MD Ordering Provider: Raymundo Crabtree MD Date of Service: 01/09/22 MR/MR prostate wo/w con: ELEVATED PSA EXAMINATION: MR prostate wo/w con HISTORY: Elevated PSA COMPARISON: NONE TECHNIQUE: Multiparametric imaging of the prostate gland was performed with IV contrast. FINDINGS: Prostate Dimensions: 4.5 x 3.7 x 4.9 cm Prostate Volume: 43 mm Peripheral Zone: Heterogenous inT2 signal suggestive of prior prostatitis. Focal area of T2 hypointensity is identified involving the lateral aspect of the right peripheral zone the level of the apex measuring 5 x 5 mm with associated restricted diffusion and low ADC value. Please see series 5 image 14, series 650 image 14 and series 600 image 14. No extracapsular extension is seen. Central/Transitional Zone: BPH changes. Seminal Vesicles: Unremarkable Neurovascular bundles: Unremarkable. Lymphadenopathy: No evidence of lymphadenopathy. Bladder: No focal lesion. Bowel: Diverticulosis. Peritoneal Cavity: No free fluid. Bones: No suspicious bony lesion. MR/MR prostate wo/w con IMPRESSION: Focal area of T2 hypointensity is identified involving the lateral aspect of the right peripheral zone the level of the apex measuring 5 x 5 mm with associated restricted diffusion and low ADC value. Please see series 5 image 14, series 650 image 14 and series 600 image 14. No extracapsular extension is seen. PI-RADS 4. Targeting on biopsy is recommended. Impression dictated by: Jeremie Thomas Jr., D.OOlivia01/10/2022 10:36 AM Dictation Location: [place] [address] Transcribed By: [facility] 01/10/22 1036 Dictated By: Jeremie Thomas Jr, DO 01/10/22 1031 Signed By: 01/10/22 1036 [facility] Creatinine (Bld) [Mass/Vol]O rdered By: Raymundo Crabtree on 01-09-2022 Creatinine [Mass/Vol] 1.2 mg/dL 0.6-1.3 [facility] Comment on above: ER/ESD physician is notified/shown all ISTAT results. Critical values may be confirmed by laboratory testing if deemed necessary by ER attending doctor. No Panel InformationOrdered By: Raymundo Crabtree on 01-09-2022 POC Estimated GFR > 60 [facility] Comment on above: GFR estimated refere nce range: According to KDOQI guidelines, <60 ml/min/1.73m2 is sufficient to diagnose a patient with chronic kidney disease. POC Estimated GFR Non- Amer > 60 [facility] Vital Signs Date Time Vital Sign Value Performing Clinician Facility 06-20-2023 15:48-0500 Body height 172.7 cm Maria Dolores Petznick DO Work Phone: [facility] 06-20-2023 15:48-0500 Body mass index (BMI) [Ratio] 38.32 kg/m2 Maria Dolores Petznick DO Work Phone: [facility] 06-20-2023 15:48-0500 Body temperature 97.9 [degF] Maria Dolores Petznick DO [facility] [facility]23 15:48-0500 Body weight 114.31 kg Maria Dolores Petznick DO Work Phone: [facility] 06-20-2023 15:48-0500 Diastolic blood pressure 64 mm[Hg] Maria Dolores Petznick DO Work Phone: [facility] 06-20-2023 15:48-0500 Heart rate 72 /min Maria Dolores Petznick DO Work Phone: [facility] 06-20-2023 15:48-0500 SaO2% (BldA) [Mass fraction] 96 % Maria Dolores Petznick DO Work Phone: [facility] 06-20-2023 15:48-0500 Systolic blood pressure 122 mm[Hg] Maria Dolores Petznick DO Work Phone: [facility] 12-31-2022 15:57-0400 Blood Pressure Location Raymundo CRABTREE [facility] 12-31-2022 15:57-0400 Diastolic blood pressure 82 mm[Hg] Raymundo CRABTREE [facility] 12-31-2022 15:57-0400 Heart rate 63 /min Raymundo CRABTREE [facility] 12-31-2022 15:57-0400 Systolic blood pressure 134 mm[Hg] Raymundo CRABTREE [facility] 10-29-2022 08:39-0400 Blood Pressure Location Raymundo CRABTREE [facility] 10-29-2022 08:39-0400 Diastolic blood pressure 83 mm[Hg] Raymundo CRABTREE [facility] 10-29-2022 08:39-0400 Heart rate 66 /min Raymundo CRABTREE [facility] 10-29-2022 08:39-0400 Respiratory rate 16 /min Raymundo CRABTREE [facility] 10-29-2022 08:39-0400 Systolic blood pressure 139 mm[Hg] Raymundo CRABTREE [facility] 02-21-2022 15:53-0400 Blood Pressure Location Raymundo CRABTREE [facility] 02-21-2022 15:53-0400 Diastolic blood pressure 76 mm[Hg] Raymundo CRABTREE [facility] 02-21-2022 15:53-0400 Heart rate 77 /min Raymundo CRABTREE [facility] 02-21-2022 15:53-0400 Systolic blood pressure 122 mm[Hg] Raymundo CRABTREE [facility] 12-25-2021 14:31-0400 Blood Pressure Location Raymundo CRABTREE [facility] 12-25-2021 14:31-0400 Diastolic blood pressure 83 mm[Hg] Raymundo CRABTREE [facility] 12-25-2021 14:31-0400 Heart rate 80 /min Raymundo CRABTREE [facility] 12-25-2021 14:31-0400 Respiratory rate 16 /min Raymundo CRABTREE [facility] 12-25-2021 14:31-0400 Systolic blood pressure 149 mm[Hg] Raymundo CRABTREE [facility] Encounters Encounter Date Encounter Type Care Provider Facility Start: 01-06-2024 ambulatory Raymundo CRABTREE [facility] Start: 11-25-2023 End: 11-25-2023 ambulatory MICHAEL SALCEDO Not Available Start: 11-05-2023 End: 11-05-2023 ambulatory HENNA COLEMAN Not Available Start: 10-24-2023 End: 10-24-2023 ambulatory MARIA DOLORES ABRAMS Not Available Start: 06-24-2023 End: 06-24-2023 ambulatory JESSICA TRIPATHI Facility:[facility] Start: 06-20-2023 End: 06-20-2023 Office outpatient visit 25 minutes Maria Dolores Abrams DO Work Phone: [facility] 230 Comment on above: Class 2 severe obesi ty due to excess calories with serious comorbidity and body mass index (BMI) of 38.0 to 38.9 in adult ([facility]) (Primary Dx); Type 2 diabetes mellitus with diabetic polyneuropathy, without long-term current use of insulin ([facility]) Start: 06-20-2023 End: 06-20-2023 ambulatory MARIA DOLORES ABRAMS Not Available Start: 12-31-2022 End: 12-31-2022 ambulatory Raymundo CRABTREE Facility:[facility] Start: 12-31-2022 End: 12-31-2022 Patient encounter procedure Raymundo CRABTREE [facility] Start: 10-29-2022 End: 10-29-2022 Patient encounter procedure Raymundo CRABTREE [facility] Start: 03-11-2022 Chart Update Beba Crabtree MD Work Phone: [facility] Work Phone: Start: 02-21-2022 End: 02-21-2022 Patient encounter procedure Raymundo CRABTREE [facility] Start: 02-15-2022 Encounter for preprocedural cardiovascular examination DR RAYMUNDO CRABTREE [facility] Start: 02-15-2022 Encounter for preprocedural laboratory examination DR RAYMUNDO CRABTREE [facility] Start: 02-15-2022 Encounter for preprocedural respiratory examination DR RAYMUNDO CRABTREE [facility] Start: 02-15-2022 End: 02-15-[address] RAYMUNDO CRABTREE Facility:[facility] Start: 02-13-2022 End: 02-14-[address] RAYMUNDO CRABTREE Facility:[facility] Start: 02-13-2022 End: 02-14-2022 Encounter for preprocedural laboratory examination DR RAYMUNDO CRABTREE Facility:[facility] Start: 01-17-2022 End: 02-14-2022 Pre-admission assessment Raymundo CRABTREE [facility] Start: 01-09-2022 End: 01-09-2022 Patient encounter procedure MD Raymundo Crabtree Work Phone: [facility] [place] Start: 12-25-2021 End: 12-25-2021 Patient encounter procedure Raymundo CRABTREE [facility] Procedures Date Procedure Procedure Detail Performing Clinician Start: 06-20-2023 Hemoglobin glycosyla starr a1c Maria Dolores Abrams DO Work Phone: Start: 02-15-2022 MRI-US fusion guided prostate biopsy Raymundo CRABTREE Start: 01-09-2022 MR prostate wo/w con MD Raymundo Crabtree Work Phone: Start: 12-12-2012 Colonoscopy Maria Dolores murray DO Work Phone: Arthroplasty of knee Raymundo CRABTREE Colonoscopy Raymundo CRABTREE Plan of Treatment Date Care Activity Detail Author Start: 03-26-2024 Glaucoma screening Diabetes: R etinopathy Screening [facility] Start: 11-05-2023 End: 11-05-2023 Patient encounter procedure 11/05/2023 3:30 PM EDT Office Visit [facility] [address] [place] [id number] Henna Coleman MD [address] [place] [address] [facility] Start: 10-24-2023 End: 10-24-2023 Patient encounter procedure 10/24/2023 3:30 PM EDT Office Visit [facility] [address] [place] [address] Maria Dolores Abrams, DO [address] [place] [address] [place] [address] [facility] Start: 09-18-2023 Hemoglobin A1c measurement Diabetes: Hemoglobin A1C [facility] Start: 01-18-2023 Influenza vaccination Influenza Vacc ine (#1) [facility] Start: 12-12-2022 Screening for malign ant neoplasm of colon [facility] Start: 1979 Urine screening for protein Diabetes: Urine Protein Screening [facility] Start: 1960 Screening for malign ant neoplasm of colon [facility] Immunizations Immunization Date Immunization Notes Care Provider Fa latonyamorgan 04-30-2022 influenza virus vacc ine, unspecified formulation Raymundo CRABTREE [facility] 04-30-2022 Influenza, injectabl e, Madin Selin Canine Kidney, preservative free, quadrivalent Maria Dolores Petznick DO Work Phone: [facility] 10-31-2021 pneumococcal polysaccharide vaccine, 23 valent Raymundo [employer] [facility] 05-09-2021 SARS-CoV-2 (COVID-19 ) mRNA-1273 vaccine [facility] 04-27-2021 influenza virus vacc ine, unspecified formulation Raymundo [employer] [facility] 04-27-2021 influenza, injectabl e, quadrivalent, contains preservative Maria Dolores Petznick DO Work Phone: [facility] 01-25-2021 tetanus toxoid, redu todd diphtheria toxoid, and acellular pertussis vaccine, adsorbed Raymundo [employer] [facility] 08-26-2020 SARS-CoV-2 (COVID-19 ) mRNA-1273 vaccine [place] [facility] Comment on above: Result Comment: [id number]: [id number] 07-29-2020 SARS-CoV-2 (COVID-19 ) mRNA-1273 vaccine [place] [facility] Isaac Comment on above: Result Comment: [id number]: [id number] 03-30-2019 influenza, injectabl e, madin selin canine kidney, preservative free Maria Doloresjuli Abrams DO Work Phone: [facility] 03-14-2009 influenza virus vacc ine, whole virus Maria Dolores Petdevick DO Work Phone: [facility] 03-14-2009 influenza, whole Raymundo MARINA ERS [facility] Payers Date Payer Category Payer Private Health Insurance [facility] [id number] 2022-Present [address] [address] [place] [address] [id number] 2022 Private Health Insurance [id number] 1960 Unknown [id number] [id number] 1960 Unknown [id number] [id number] 1960 Unknown [id number] [id number] 1960 Unknown [id number]. [id number] 1960 Unknown [id number] [id number] 1960 Unknown [id number] [id number] 1960 Unknown [id number]. [id number] 1960 Unknown [id number]. [id number] 1960 Unknown [id number]. [id number] 1959 Unknown [id number] Unknown [facility] [id number] Social History Date Type Detail Facility Start: 12-25-2021 End: 11-01-2022 Tobacco smoking status Never smoked tobacco (finding) [facility] Start: 11-01-2022 End: 03-18-2023 Sex Assigned At Male [facility] Start: 1960 Sex Assigned At Male F [facility] Tobacco smoking status Never [facility] Start: 11-01-2022 Tobacco use and exposure Smokeless tobacco non-user [facility] Start: 06-20-2023 Alcohol intake Current drinke r of alcohol (finding) [facility] Start: 11-01-2022 End: 03-18-2023 History of Social function [facility] Within the last year , have you been afraid of your partner or ex-partner? No [facility] Are you now , , , , never or living with a partner? [facility] How often to you hav e a drink containing alcohol? Never [facility] Do you feel stress - tense, restless, nervous, or anxious, or unable to sleep at night because your mind is troubled all the time - these days [OSQ] Not at all [facility] (I/We) worried wheth er (my/our) food would run out before (I/we) got money to buy more. Never true [facility] Start: 11-01-2022 Alcohol Comment caffeine: 2-3 cups per day [facility] Start: 1960 Sex Assigned At Not on file [facility] Medical Equipment Procedure Code Equipment Code Equipment Origin al Text Equipment Identifier Dates ONETOUCH DELICA PLUS LANCET ONETOUCH DELICA PLUS 33G LANCT Start: 12-25-2021 ONETOUCH DELICA PLUS LANCET ONETOUCH DELICA PLUS 33G LANCT Start: 12-25-2021 ONETOUCH DELICA PLUS LANCET ONETOUCH DELICA PLUS 33G LANCT Start: 12-25-2021 ONETOUCH DELICA PLUS LANCET ONETOUCH DELICA PLUS 33G LANCT Start: 12-25-2021 ONETOUCH DELICA PLUS LANCET ONETOUCH DELICA PLUS 33G LANCT Start: 12-25-2021 Functional Status Date Assessment Result Facility 12-31-2022 Functional Status N/A [facility] 10-29-2022 Functional Status N/A [facility] 02-21-2022 Functional Status N/A [facility] 12-25-2021 Functional Status N/A [facility] Clinical Notes 12-25-2021 to 06-20-2023 Maria Dolores Abrams DO - 06/20/2023 9:10 PM ESTMaria Dolores Abrams DO - 06/20/2023 4:00 PM EST Note Date & Type Note Facility 06-20-2023 History of Present illness Narrative Associated Problem(s): Type 2 diabetes mellitus with diabetic polyneuropathy, without long-term current use of insulin ([facility]) During the appointment today all pertinent labs, imaging, health maintenance, and glucose readings were reviewed. Encouraged to check blood glucose throughout the day with some fasting and some PP readings. They are to bring their glucose meter/cgm in to all appointments. All of the patients questions, treatment options, and current care plan and goals were discussed. A copy of this along with pertinent instructions were given to the patient at the end of the appointment. The patient voices understanding of all of this and is to call in between appointments if they have any problems or questions. Mindi George is doing very well and encouraged on this. , Will stay on current medications. Images from the original note were not included. Mindi George is a 63 y.o. male presents with chief complaint of Diabetes HPI: Diabetes Mellitus Follow-up: Mindi George is here for follow-up evaluation of diabetes mellitus. The initial diagnosis of Type 2 diabetes was made in 2013 Diabetes complications: peripheral neuropathy He has not been checking his blood glucose at all. Last A1c: 5.4 on 03/18/2023 Last eye exam: 03/27/2022 Current concerns include: Has not been checking bg levels. Diet: trying to get back on track with his diet. Exercise: none Hypoglycemia: none Asking if pork rinds, peanut butter and bananas are ok. He states he eats a lot of peanut butter and pork rinds SUBJECTIVE: RECENT LABS: A1c Lab Results Component Value Date HGBA1C 5.3 06/20/2023 HGBA1C 5.4 03/18/2023 HGBA1C 5.6 12/06/2022 See medication list at the end of the note. No Known Allergies REVIEW OF SYMPTOMS: Review of Systems Constitutional: Negative for appetite change, fatigue and unexpected weight change. Eyes: Negative for visual disturbance. Respiratory: Negative for cough, shortness of breath and wheezing. Cardiovascular: Negative for chest pain, palpitations and leg swelling. Neurological: Negative for numbness. Endocrine: Negative for polydipsia, polyphagia and polyuria. OBJECTIVE: Visit Vitals BP 122/64 Pulse 72 Temp 97.9 F Ht 5' 8 Wt 252 lb SpO2 96% BMI 38.32 kg/m Smoking Status Never BSA 2.34 m Physical Exam Constitutional: General: He is not in acute distress. Appearance: Normal appearance. He is obese. Cardiovascular: Rate and Rhythm: Normal rate and regular rhythm. Heart sounds: No murmur heard. No friction rub. No gallop. Pulmonary: Breath sounds: Normal breath sounds. No wheezing, rhonchi or rales. Musculoskeletal: General: No swelling. Neurological: Mental Status: He is alert. ASSESSMENT AND PLAN: Problem List Items Addressed This Visit Type 2 diabetes mellitus with diabetic polyneuropathy, without long-term current use of insulin ([facility]) During the appointment today all pertinent labs, imaging, health maintenance, and glucose readings were reviewed. Encouraged to check blood glucose throughout the day with some fasting and some PP readings. They are to bring their glucose meter/cgm in to all appointments. All of the patients questions, treatment options, and current care plan and goals were discussed. A copy of this along with pertinent instructions were given to the patient at the end of the appointment. The patient voices understanding of all of this and is to call in between appointments if they have any problems or questions. Mindi George is doing very well and encouraged on this. , Will stay on current medications. Relevant Orders POCT glycosylated hemoglobin (Hb A1C) docked device (Completed) Class 2 severe obesity due to excess calories with serious comorbidity and body mass index (BMI) of 38.0 to 38.9 in adult ([facility]) - Primary Follow up in about 4 months (around 10/19/2023) for Recheck. Patient's Medications New Prescriptions No medications on file Previous Medications ALLOPURINOL (ZYLOPRIM) 300 MG TABLET TAKE 1 TABLET BY MOUTH EVERY DAY ASCORBIC ACID (VITAMIN C) 500 MG CAPSULE 1 (one) time each day at the same time. ASPIRIN (VAZALORE) 81 MG CAPSULE Take by mouth LISINOPRIL-HYDROCHLOROTHIAZIDE 20-25 MG TABLET Take 1 tablet by mouth in the morning. METOPROLOL SUCCINATE XL (TOPROL-XL) 50 MG 24 HR TABLET Take 1 tablet (50 mg) by mouth 1 (one) time each day at the same time. MULTIPLE VITAMIN (MULTI VITAMIN DAILY) TABLET 1 (one) time each day at the same time. OMEGA-3 1000 MG CAPSULE CAPSULE Take by mouth OMEPRAZOLE OTC (PRILOSEC OTC) 20 MG EC TABLET Take 1 tablet (20 mg) by mouth 1 (one) time each day at the same time. OZEMPIC, 1 MG/DOSE, 4 MG/3ML SOLUTION PEN-INJECTOR Inject 1 mg under the skin 1 (one) time per week. TAMSULOSIN (FLOMAX) 0.4 MG 24 HR CAPSULE Take 0.4 mg by mouth in the morning and 0.4 mg before bedtime. TURMERIC PO Take by mouth Modified Medications No medications on file Discontinued Medications OMEPRAZOLE 20 MG TABLET DELAYED-RELEASE documented in this encounter [facility] 12-31-2022 Hospital Discharge instructions Patient Education 12/31/2022 16:35:06 Benign Prostatic Hyperplasia Benign Prostatic Hyperplasia Benign prostatic hyperplasia (BPH) is an enlarged prostate gland that is caused by the normal aging process. The prostate may get bigger as a man gets older. The condition is not caused by cancer. The prostate is a walnut-sized gland that is involved in the production of semen. It is located in front of the rectum and below the bladder. The bladder stores urine. The urethra carries stored urine out of the body. An enlarged prostate can press on the urethra. This can make it harder to pass urine. The buildup of urine in the bladder can cause infection. Back pressure and infection may progress to bladder damage and kidney (renal) failure. What are the causes? This condition is part of the normal aging process. However, not all men develop problems from this condition. If the prostate enlarges away from the urethra, urine flow will not be blocked. If it enlarges toward the urethra and compresses it, there will be problems passing urine. What increases the risk? This condition is more likely to develop in men older than 50 years. What are the signs or symptoms? Symptoms of this condition include: Getting up often during the night to urinate. Needing to urinate frequently during the day. Difficulty starting urine flow. Decrease in size and strength of your urine stream. Leaking (dribbling) after urinating. Inability to pass urine. This needs immediate treatment. Inability to completely empty your bladder. Pain when you pass urine. This is more common if there is also an infection. Urinary tract infection (UTI). How is this diagnosed? This condition is diagnosed based on your medical history, a physical exam, and your symptoms. Tests will also be done, such as: A post-void bladder scan. This measures any amount of urine that may remain in your bladder after you finish urinating. A digital rectal exam. In a rectal exam, your health care provider checks your prostate by putting a lubricated, gloved finger into your rectum to feel the back of your prostate gland. This exam detects the size of your gland and any abnormal lumps or growths. An exam of your urine (urinalysis). A prostate specific antigen (PSA) screening. This is a blood test used to screen for prostate cancer. An ultrasound. This test uses sound waves to electronically produce a picture of your prostate gland. Your health care provider may refer you to a specialist in kidney and prostate diseases (urologist). How is this treated? Once symptoms begin, your health care provider will monitor your condition (active surveillance or watchful waiting). Treatment for this condition will depend on the severity of your condition. Treatment may include: Observation and yearly exams. This may be the only treatment needed if your condition and symptoms are mild. Medicines to relieve your symptoms, including: ?Medicines to shrink the prostate. ?Medicines to relax the muscle of the prostate. Surgery in severe cases. Surgery may include: ?Prostatectomy. In this procedure, the prostate tissue is removed completely through an open incision or with a laparoscope or robotics. ?Transurethral resection of the prostate (TURP). In this procedure, a tool is inserted through the opening at the tip of the penis (urethra). It is used to cut away tissue of the inner core of the prostate. The pieces are removed through the same opening of the penis. This removes the blockage. ?Transurethral incision (TUIP). In this procedure, small cuts are made in the prostate. This lessens the prostate's pressure on the urethra. ?Transurethral microwave thermotherapy (TUMT). This procedure uses microwaves to create heat. The heat destroys and removes a small amount of prostate tissue. ?Transurethral needle ablation (TUNA). This procedure uses radio frequencies to destroy and remove a small amount of prostate tissue. ?Interstitial laser coagulation (ILC). This procedure uses a laser to destroy and remove a small amount of prostate tissue. ?Transurethral electrovaporization (TUVP). This procedure uses electrodes to destroy and remove a small amount of prostate tissue. ?Prostatic urethral lift. This procedure inserts an implant to push the lobes of the prostate away from the urethra. Follow these instructions at home: Take [id number] and prescription medicines only as told by your health care provider. Monitor your symptoms for any changes. Contact your health care provider with any changes. Avoid drinking large amounts of liquid before going to bed or out in public. Avoid or reduce how much caffeine or alcohol you drink. Give yourself time when you urinate. Keep all follow-up visits. This is important. Contact a health care provider if: You have unexplained back pain. Your symptoms do not get better with treatment. You develop side effects from the medicine you are taking. Your urine becomes very dark or has a bad smell. Your lower abdomen becomes distended and you have trouble passing urine. Get help right away if: You have a fever or chills. You suddenly cannot urinate. You feel light-headed or very dizzy, or you faint. There are large amounts of blood or clots in your urine. Your urinary problems become hard to manage. You develop moderate to severe low back or flank pain. The flank is the side of your body between the ribs and the hip. These symptoms may be an emergency. Get help right away. Call 911. Do not wait to see if the symptoms will go away. Do not drive yourself to the hospital. Summary Benign prostatic hyperplasia (BPH) is an enlarged prostate that is caused by the normal aging process. It is not caused by cancer. An enlarged prostate can press on the urethra. This can make it hard to pass urine. This condition is more likely to develop in men older than 50 years. Get help right away if you suddenly cannot urinate. This information is not intended to replace advice given to you by your health care provider. Make sure you discuss any questions you have with your health care provider. Document Revised: 11/22/2021 Document Reviewed: 11/22/2021 [employer] Patient Education 2022 [place]. Follow Up Care 10/29/2022 09:24:24 With:ANKUR ELLIOTT, Raymundo Conte, URL Address: [facility] [address] , [place] [address] [phone] When:Within 6 Month(s) Comments:PSA and SHELBY [facility] [place] 10-29-2022 Hospital Discharge instructions Patient Education 10/29/2022 09:10:51 Prostatitis Prostatitis Prostatitis is swelling or inflammation of the prostate gland, also called the prostate. This gland is about 1.5 inches wide and 1 inch high, and it is involved in making semen. The prostate is located below a man's bladder, in front of the rectum. There are four types of prostatitis: Chronic prostatitis (CP), also called chronic pelvic pain syndrome (CPPS). This is the most common type of prostatitis. It is associated with increased muscle tone in the area between the hip bones (pelvic area), around the prostate. This type is also known as a pelvic floor disorder. Chronic bacterial prostatitis. This type usually results from an acute bacterial infection in the prostate gland that keeps coming back or has not been treated properly. The symptoms are less severe than those caused by acute bacterial prostatitis, which lasts a shorter time. Asymptomatic inflammatory prostatitis. This type does not have symptoms and does not need treatment. This is diagnosed when tests are done for other disorders of the urinary tract or reproductive tract. Acute bacterial prostatitis. This type starts quickly and results from an acute bacterial infection in the prostate gland. It is usually associated with a bladder infection, high fever, and chills. This is the least common type of prostatitis. What are the causes? Bacterial prostatitis is caused by an infection from bacteria. Chronic nonbacterial prostatitis may be caused by: Factors related to the nervous system. This system includes thebrain, spinal cord, and nerves. An autoimmune response. This happens when the body's disease-fighting system attacks healthy tissue in the body by mistake. Psychological factors. These have to do with how the mind works. The causes of the other types of prostatitis are usually not known. What are the signs or symptoms? Symptoms of this condition depend on the type of prostatitis you have. Acute bacterial prostatitis Symptoms may include: Pain or burning during urination. Frequent and sudden urges to urinate. Trouble starting to urinate. Fever. Chills. Pain in your muscles or joints, lower back, or lower abdomen. Other types of prostatitis Symptoms may include: Sudden urges to urinate, or urinating often. Trouble starting to urinate. Weak urine stream. Dribbling after urination. Discharge coming from the penis. Pain in the testicles, the penis, or the tip of the penis. Pain in the area in front of the rectum and below the scrotum (perineum). Pain when ejaculating. How is this diagnosed? This condition may be diagnosed based on: A physical and medical exam. A digital rectal exam. For this, the health care provider may use a finger to feel the prostate. A urine test to check for bacteria. A semen sample or blood tests. Ultrasound. Urodynamic tests to check how your body handles urine. Cystoscopy to look inside your bladder or inside the part of your body that drains urine from the bladder (urethra). How is this treated? Treatment for this condition depends on the type of prostatitis. Treatment may involve: Medicines to relieve pain or inflammation, or to help relax your muscles. Physical therapy. Heat therapy. Biofeedback. These techniques help you control certain body functions. Relaxation exercises. Antibiotic medicine, if your condition is caused by bacteria. Sitz baths. These warm water baths help to relax your pelvic floor muscles, which helps to relieve pressure on the prostate. Follow these instructions at home: Medicines Take vtno-lfj-kkziogu and prescription medicines only as told by your health care provider. If you were prescribed an antibiotic medicine, take it as told by your health care provider. Do not stop using the antibiotic even if you start to feel better. Managing pain and swelling Take sitz baths as directed by your health care provider. For a sitz bath, sit in warm water that is deep enough to cover your hips and buttocks. If directed, apply heat to the affected area as often as told by your health care provider. Use the heat source that your health care provider recommends, such as a moist heat pack or a heating pad. ?Place a towel between your skin and the heat source. ?Leave the heat on for 20 30 minutes. ?Remove the heat if your skin turns bright red. This is especially important if you are unable to feel pain, heat, or cold. You may have a greater risk of getting burned. General instructions Do exercises as told by your health care provider, if you were prescribed physical therapy, biofeedback, or relaxation exercises. Keep all follow-up visits as told by your health care provider. This is important. Where to find more information National [place] of Diabetes and Digestive and Kidney Diseases: https://www.niddk.nih.gov Contact a health care provider if: Your symptoms get worse. You have a fever. Get help right away if: You have chills. You feel light-headed or feel like you may faint. You cannot urinate. You have blood or blood clots in your urine. Summary Prostatitis is swelling or inflammation of the prostate gland. Treatment for this condition depends on the type of prostatitis. Take hdjt-fmw-smkszir and prescription medicines only as told by your health care provider. Get help right away of you have chills, feel light-headed, feel like you may faint, cannot urinate, or have blood or blood clots in your urine. This information is not intended to replace advice given to you by your health care provider. Make sure you discuss any questions you have with your health care provider. Document Revised: 06/10/2020 Document Reviewed: 06/10/2020 Elsevier Patient Education 2022 [employer]. Follow Up Care 07/02/2022 13:18:29 With:ANKUR ELLIOTT, Raymundo Conte, URL Address: [facility] [address] [place] [address]- When: Unknown [facility] 02-21-2022 Hospital Discharge instructions Patient Education 02/21/2022 16:15:03 Prostate Cancer Prostate Cancer The prostate is a walnut-sized gland that is involved in the production of semen. It is located below a man's bladder, in front of the rectum. Prostate cancer is the abnormal growth of cells in the prostate gland. What are the causes? The exact cause of this condition is not known. What increases the risk? This condition is more likely to develop in men who: Are older than age 65. Are -Serbian. Are obese. Have a family history of prostate cancer. Have a family history of breast cancer. What are the signs or symptoms? Symptoms of this condition include: A need to urinate often. Weak or interrupted flow of urine. Trouble starting or stopping urination. Inability to urinate. Pain or burning during urination. Painful ejaculation. Blood in urine or semen. Persistent pain or discomfort in the lower back, lower abdomen, hips, or upper thighs. Trouble getting an erection. Trouble emptying the bladder all the way. How is this diagnosed? This condition can be diagnosed with: A digital rectal exam. For this exam, a health care provider inserts a gloved finger into the rectum to feel the prostate gland. A blood test called a prostate-specific antigen (PSA) test. An imaging test called transrectal ultrasonography. A procedure in which a sample of tissue is taken from the prostate and examined under a microscope (prostate biopsy). Once the condition is diagnosed, tests will be done to determine how far the cancer has spread. This is called staging the cancer. Staging may involve imaging tests, such as: A bone scan. A CT scan. A PET scan. An MRI. The stages of prostate cancer are as follows: Stage I. At this stage, the cancer is found in the prostate only. The cancer is not visible on imaging tests and it is usually found by accident, such as during a prostate surgery. Stage II. At this stage, the cancer is more advanced than it is in stage I, but the cancer has not spread outside the prostate. Stage III. At this stage, the cancer has spread beyond the outer layer of the prostate to nearby tissues. The cancer may be found in the seminal vesicles, which are near the bladder and the prostate. Stage IV. At this stage, the cancer has spread other parts of the body, such as the lymph nodes, bones, bladder, rectum, liver, or lungs. How is this treated? Treatment for this condition depends on several factors, including the stage of the cancer, your age, personal preferences, and your overall health. Talk with your health care provider about treatment options that are recommended for you. Common treatments include: Observation for early stage prostate cancer (active surveillance). This involves having exams, blood tests, and in some cases, more biopsies. For some men, this is the only treatment needed. Surgery. Types of surgeries include: ?Open surgery. In this surgery, a larger incision is made to remove the prostate. ?A laparoscopic prostatectomy. This is a surgery to remove the prostate and lymph nodes through several, small incisions. It is often referred to as a minimally invasive surgery. ?A robotic prostatectomy. This is a surgery to remove the prostate and lymph nodes with the help of a robotic arm that is controlled by a computer. ?Orchiectomy. This is a surgery to remove the testicles. ?Cryosurgery. This is a surgery to freeze and destroy cancer cells. Radiation treatment. Types of radiation treatment include: ?External beam radiation. This type aims beams of radiation from outside the body at the prostate to destroy cancerous cells. ?Brachytherapy. This type uses radioactive needles, seeds, wires, or tubes that are implanted into the prostate gland. Like external beam radiation, brachytherapy destroys cancerous cells. An advantage is that this type of radiation limits the damage to surrounding tissue and has fewer side effects. High-intensity, focused ultrasonography. This treatment destroys cancer cells by delivering high-energy ultrasound waves to the cancerous cells. Chemotherapy medicines. This treatment kills cancer cells or stops them from multiplying. Hormone treatment. This treatment involves taking medicines that act on one of the male hormones (testosterone): ?By stopping your body from producing testosterone. ?By blocking testosterone from reaching cancer cells. Follow these instructions at home: Take turk-jvx-qpetxvt and prescription medicines only as told by your health care provider. Maintain a healthy diet. Get plenty of sleep. Consider joining a support group for men who have prostate cancer. Meeting with a support group may help you learn to cope with the stress of having cancer. Keep all follow-up visits as told by your health care provider. This is important. If you have to go to the hospital, notify your cancer specialist (oncologist). Treatment for prostate cancer may affect sexual function. Continue to have intimate moments with your partner. This may include touching, holding, hugging, and caressing. Contact a health care provider if: You have trouble urinating. You have blood in your urine. You have pain in your hips, back, or chest. Get help right away if: You have weakness or numbness in your legs. You cannot control urination or your bowel movements (incontinence). You have trouble breathing. You have sudden chest pain. You have chills or a fever. Summary The prostate is a walnut-sized gland that is involved in the production of semen. It is located below a man's bladder, in front of the rectum. Prostate cancer is the abnormal growth of cells in the prostate gland. Treatment for this condition depends on several factors, including the stage of the cancer, your age, personal preferences, and your overall health. Talk with your health care provider about treatment options that are recommended for you. Consider joining a support group for men who have prostate cancer. Meeting with a support group may help you learn to cope with the stress of having cancer. This information is not intended to replace advice given to you by your health care provider. Make sure you discuss any questions you have with your health care provider. Document Released: 05/06/2006 Document Revised: 04/18/2018 Document Reviewed: 01/14/2017 FPSI Patient Education 2020 [employer]ine. Follow Up Care 02/20/2022 17:15:09 With:ANKUR ELLIOTT, Raymundo Conte, URL Address: [facility] [address] , [place] [address]- [phone] When:06/24/2022 Comments:PSA [facility] 09-27-2022 Note EXAMINATION: XR CHES T 2 V HISTORY: Pre-surgery evaluation COMPARISON: No relevant comparison available. TECHNIQUE: PA and lateral FINDINGS: LUNGS: No significant pulmonary parenchymal abnormalities. VASCULATURE: No increased pulmonary vasculature. PLEURA: No pneumothorax, effusion, or pleural thickening. CARDIAC: No cardiomegaly or cardiac silhouette abnormality. MEDIASTINUM: No visible mass or adenopathy. BONES: No fracture or visible bone lesion. OTHER: Negative. IMPRESSION: No acute disease. Electronically authenticated by: KASSIDY BLAKE Date: 2022-02-13 18:10 [facility] 12-25-2021 Hospital Discharge instructions Patient Education 12/25/2021 15:05:29 Benign Prostatic Hyperplasia Benign Prostatic Hyperplasia Benign prostatic hyperplasia (BPH) is an enlarged prostate gland that is caused by the normal aging process and not by cancer. The prostate is a walnut-sized gland that is involved in the production of semen. It is located in front of the rectum and below the bladder. The bladder stores urine and the urethra is the tube that carries the urine out of the body. The prostate may get bigger as a man gets older. An enlarged prostate can press on the urethra. This can make it harder to pass urine. The build-up of urine in the bladder can cause infection. Back pressure and infection may progress to bladder damage and kidney (renal) failure. What are the causes? This condition is part of a normal aging process. However, not all men develop problems from this condition. If the prostate enlarges away from the urethra, urine flow will not be blocked. If it enlarges toward the urethra and compresses it, there will be problems passing urine. What increases the risk? This condition is more likely to develop in men over the age of 50 years. What are the signs or symptoms? Symptoms of this condition include: Getting up often during the night to urinate. Needing to urinate frequently during the day. Difficulty starting urine flow. Decrease in size and strength of your urine stream. Leaking (dribbling) after urinating. Inability to pass urine. This needs immediate treatment. Inability to completely empty your bladder. Pain when you pass urine. This is more common if there is also an infection. Urinary tract infection (UTI). How is this diagnosed? This condition is diagnosed based on your medical history, a physical exam, and your symptoms. Tests will also be done, such as: A post-void bladder scan. This measures any amount of urine that may remain in your bladder after you finish urinating. A digital rectal exam. In a rectal exam, your health care provider checks your prostate by putting a lubricated, gloved finger into your rectum to feel the back of your prostate gland. This exam detects the size of your gland and any abnormal lumps or growths. An exam of your urine (urinalysis). A prostate specific antigen (PSA) screening. This is a blood test used to screen for prostate cancer. An ultrasound. This test uses sound waves to electronically produce a picture of your prostate gland. Your health care provider may refer you to a specialist in kidney and prostate diseases (urologist). How is this treated? Once symptoms begin, your health care provider will monitor your condition (active surveillance or watchful waiting). Treatment for this condition will depend on the severity of your condition. Treatment may include: Observation and yearly exams. This may be the only treatment needed if your condition and symptoms are mild. Medicines to relieve your symptoms, including: ?Medicines to shrink the prostate. ?Medicines to relax the muscle of the prostate. Surgery in severe cases. Surgery may include: ?Prostatectomy. In this procedure, the prostate tissue is removed completely through an open incision or with a laparoscope or robotics. ?Transurethral resection of the prostate (TURP). In this procedure, a tool is inserted through the opening at the tip of the penis (urethra). It is used to cut away tissue of the inner core of the prostate. The pieces are removed through the same opening of the penis. This removes the blockage. ?Transurethral incision (TUIP). In this procedure, small cuts are made in the prostate. This lessens the prostate's pressure on the urethra. ?Transurethral microwave thermotherapy (TUMT). This procedure uses microwaves to create heat. The heat destroys and removes a small amount of prostate tissue. ?Transurethral needle ablation (TUNA). This procedure uses radio frequencies to destroy and remove a small amount of prostate tissue. ?Interstitial laser coagulation (ILC). This procedure uses a laser to destroy and remove a small amount of prostate tissue. ?Transurethral electrovaporization (TUVP). This procedure uses electrodes to destroy and remove a small amount of prostate tissue. ?Prostatic urethral lift. This procedure inserts an implant to push the lobes of the prostate away from the urethra. Follow these instructions at home: Take yecd-ozx-lxrqgem and prescription medicines only as told by your health care provider. Monitor your symptoms for any changes. Contact your health care provider with any changes. Avoid drinking large amounts of liquid before going to bed or out in public. Avoid or reduce how much caffeine or alcohol you drink. Give yourself time when you urinate. Keep all follow-up visits as told by your health care provider. This is important. Contact a health care provider if: You have unexplained back pain. Your symptoms do not get better with treatment. You develop side effects from the medicine you are taking. Your urine becomes very dark or has a bad smell. Your lower abdomen becomes distended and you have trouble passing your urine. Get help right away if: You have a fever or chills. You suddenly cannot urinate. You feel lightheaded, or very dizzy, or you faint. There are large amounts of blood or clots in the urine. Your urinary problems become hard to manage. You develop moderate to severe low back or flank pain. The flank is the side of your body between the ribs and the hip. These symptoms may represent a serious problem that is an emergency. Do not wait to see if the symptoms will go away. Get medical help right away. Call your local emergency services (911 in the [place] Do not drive yourself to the hospital. Summary Benign prostatic hyperplasia (BPH) is an enlarged prostate that is caused by the normal aging process and not by cancer. An enlarged prostate can press on the urethra. This can make it hard to pass urine. This condition is part of a normal aging process and is more likely to develop in men over the age of 50 years. Get help right away if you suddenly cannot urinate. This information is not intended to replace advice given to you by your health care provider. Make sure you discuss any questions you have with your health care provider. Document Released: 05/06/2006 Document Revised: 03/31/2019 Document Reviewed: 06/10/2017 FPSI Patient Education 2020 [employer]ine. Follow Up Care 11/02/2021 12:46:05 With:ANKUR ELLIOTT, CHRIS Meyer Address: [facility] [address] , [place] [address]- [phone] When: Unknown Comments:schedule MRI of prostate and TRUS bx [facility] Evaluation + Plan note No data available for this section [facility] Evaluation + Plan note Future Appointments Appointment Date:02/26/2022 03:30:00 PM Scheduled Provider:Raymundo CRABTREE MD Location:[facility] Appointment Type:URO Office Visit [facility] Evaluation + Plan note Future Appointments Appointment Date:07/04/2022 03:15:00 PM Scheduled Provider:Raymundo CRABTREE MD Location:On license of [facility] Appointment Type:URO Office Visit Diagnostic Tests PendingPSA Total 02/21/22 [facility] Evaluation + Plan note Future Appointments Appointment Date:12/31/2022 03:30:00 PM Scheduled Provider:Raymundo CRABTREE MD Location:[facility] Appointment Type:URO Office Visit Diagnostic Tests PendingPSA Total 10/29/22 [facility] Evaluation + Plan note Future Appointments Appointment Date:07/01/2023 03:15:00 PM Scheduled Provider:Raymundo CRABTREE MD Location:[facility] Appointment Type:URO Office Visit Diagnostic Tests PendingPSA Total 12/31/22 [facility] Evaluation note No assessment inform ation available [facility] Work Phone: Evaluation note Diagnosis Class 2 severe obesity due to excess calories with serious comorbidity and body mass index (BMI) of 38.0 to 38.9 in adult (CMS/HCC)- Primary Type 2 diabetes mellitus with diabetic polyneuropathy, without long-term current use of insulin ([facility]) documented in this encounter [facility] Dis[facility] instructions No data available for this section [facility] No data available for this section [facility] Summary Purpose Family History No Family History Records FoundNo Family History Records FoundNo Family History Records FoundNo Family History Records Found Advance Directives No Advanced Directives Records Found Advance Directive Response Recorded Date/ Time Advance Directives No January 05, 2022 4:18pm Chief Complaint and Reason for Visit Chief Complaint ELEVATED PSA Additional Source Comments Care Team (unrecognized sect ion and content) Team Status: Inactive Member Role Status Dates Raymundo Crabtree MD Attending Provider Active Jessica Tripathi DO Primary Care Provider Active Team Status: Active Member Role Status Dates Jessica Tripathi , Primary Care Provider Active Test Carrier Relationship Specialty Start Date End Date Henna Coleman MD [address] [place] [address] PCP - General Family Medicine 06/07/23 (unrecognized sect ion and content) No Status Records FoundNo Status Records FoundNo Status Records FoundNo Status Records Found INFORMATION SOURCE (unrecogn ized section and content) DATE CREATED AUTHOR 01/16/2022 [facility] DATE CREATED AUTHOR AUTHOR'S ORGANIZ ATION [facility] DATE CREATED AUTHOR AUTHOR'S ORGANIZ ATION 12/02/2023 [facility] EPIC DATE CREATED AUTHOR AUTHOR'S ORGANIZ ATION 12/04/2023 [facility] Goals (unrecognized section and content) Goals may be documented in a n alternate section Reason for Visit (unrecogniz ed section and content) Reason Comments Diabetes FOR RECORDS PERTAINING TO PATIENTS WHO ARE OR HAVE BEEN ENROLLED IN A CHEMICAL DEPENDENCY/SUBSTANCEABUSE PROGRAM, SOME INFORMATION MAY BE OMITTED. This clinical summary was aggregated from multiple sources. Caution should be exercised in using it in the provision of clinical care. This summary normalizes information from multiple sources, and as a consequence, information in this document may materially change the coding, format and clinical context of patient data. In addition, data may be omitted in some cases. CLINICAL DECISIONS SHOULD BE BASED ON THE PRIMARY CLINICAL RECORDS. [facility]. provides no warranty or guarantee of the accuracy or completeness of information in this document.
[2023-12-24 07:17] LABS: Glucometer 87 mg/dL (74-106)
[2023-12-24] MEDS: LACTATED RINGER'S SOLUTION 1,000 ML 50 ML IV (07:21)
[2023-12-24 08:03] VITALS: BP 144/73; PULSE 71; O2SAT 98
--- NOTE | 2023-12-24 08:11 | W.PM.PROCNOT ---
Date of procedure: 12/24/23 Pre-op diagnosis: screening colonoscopy Post-op diagnosis: other (miranda-diverticulosis and cecal polyp at 110cm) Procedure: Previous colonoscopy: 2012 procedure: screening colonoscopy The patient was given IV conscious sedation.? The patient's SPO2 remained above 90% throughout the procedure. The colonoscope was inserted per rectum and advanced under direct vision to the cecum without difficulty.? The prep was good.? Findings: Cecum/Ascending colon: small subcentimeter polyp removed completely with snare device, mild diverticula noted Transverse colon: normal mild diverticula noted Descending/Sigmoid colon: mild diverticula noted Rectum/Anus: examined in normal and retroflexed positions and was normal Withdrawal Time was (minutes): 15 The colon was decompressed and the scope was removed.? The patient tolerated the procedure well. Recommendations/Plan: 1.? Lifestyle and dietary modifications as discussed 2.? F/U Biopsies 3.? F/U in 7-10 years pending biopsy results 4.? Discussed with the family Anesthesia: MAC Surgeon: Chito Peterson Estimated blood loss (mL): 1 Pathology: other (cecal polyp ) Condition: stable Disposition: PACU
[2023-12-24 08:18] VITALS: BP 136/84; PULSE 64; O2SAT 100
[2023-12-24 08:33] VITALS: BP 148/83; PULSE 66; O2SAT 98
== END 2023-12-24 08:33 | disposition home or self-care (01) ==
LOC: SURGOUT 06:32
PROVIDERS: PCP Family Medicine; Visit Provider Surgery
PROC: (CPT 811; principal; 2023-12-24 07:30)
DX: Z12.11 Encounter for screening for malignant neoplasm of colon (principal); D12.0 Benign neoplasm of cecum; K57.30 Diverticulosis of large intestine without perforation or abscess without bleeding; G47.33 Obstructive sleep apnea (adult) (pediatric); I10 Essential (primary) hypertension; K21.9 Gastro-esophageal reflux disease without esophagitis; E11.9 Type 2 diabetes mellitus without complications; Z79.85 Long-term (current) use of injectable non-insulin antidiabetic drugs
CPT/HCPCS: 45385; 36415; 82948; 88305; J2704